=== PATIENT | female | born 1990 | race African-American/Black ===

== ENCOUNTER 2017-07-25 14:17 | Emergency (ER) | payer SELFPAY ==
[~2017-07-25] VITALS: Ht 167.6 cm; Wt 74.1 kg
[~2017-07-25 14:17] MED LIST: ALBUTEROL0.83 MG/ML IH; BACTRIM DS 8001 TAB PO; BIRTH CONTROL PILLS; CEPHALEXIN500 M1 PO; DEPO MEDROL40 MG/ML IJ; MEDROL 4MG DOSPA4 MG PO; NO HOME MEDICATIONS; NORCO 325 MG-51 TAB PO; OMNICEF 300MG300 MG PO; PERCOCET 325 MG1 TA2 PO; PREDNISONE20 MG PO; PROAIR HFA0.09 MG/AC IH; PROVENTIL0.09 MG/A1 IH; VOLTAREN 75 DR75 MG PO; ZOFRAN 4MG T4 MG/TAB PO; ZOFRAN ODT4 MG PO; [UNRECOGNIZED DRUG - OTHER] PO
[2017-07-25 14:20] VITALS: BP 129/84; TEMP 98.6
[2017-07-25 15:28] LABS: ADJUSTED CALCIUM 9.2 mg/dL (8.4-10.2); ALANINE AMINOTRANSFERASE 31 U/L (9-52); ALBUMIN 4.2 gm/dL (3.5-5.0); ALKALINE PHOSPHATASE 56 U/L (50-136); ANION GAP 10 mmol/L (7-16); BILIRUBIN,TOTAL 0.4 mg/dL (0.0-1.0); BLOOD UREA NITROGEN 9 mg/dL (7-17); CALCIUM 9.4 mg/dL (8.4-10.2); CARBON DIOXIDE 24 mmol/L (22-30); CHLORIDE 104 mmol/L (98-107); CREATININE, serum 0.76 mg/dL (0.52-1.25); GLUCOSE 91 mg/dL (74-106); POTASSIUM 3.7 mmol/L (3.4-5.0); SODIUM 138 mmol/L (137-145); TOTAL PROTEIN 7.1 gm/dL (6.4-8.2)
[2017-07-25 15:32] LABS: BASO # 0.1 (0.0-0.2); BASO % 0.6 % (0.0-2.0); EOS # 0.2 (0.0-0.7); EOS % 2.2 % (0-4.0); GRAN # 5.3 (1.4-6.5); GRAN % 52.7 % (42.2-75.2); LYMPH # 3.7 (1.2-3.4); LYMPH % 36.7 % (20.0-51.0); MEAN CELL VOLUME 85 fl (80.0-100.0); MEAN CORPUSCULAR HEMOGLOBIN 28 pg (27.0-31.0); MEAN CORPUSCULAR HGB CONC 33 g/dl (33.0-37.0); MEAN PLATELET VOLUME 9.7 fl (7.4-10.4); MONO # 0.7 (0.1-0.6); MONO % 6.6 % (1.7-9.3); PLATELET COUNT 323 K/mm3 (130-400); RED BLOOD COUNT 4.28 M/mm3 (4.10-5.30); WHITE BLOOD COUNT 10.1 K/mm3 (4.8-10.8)
[2017-07-25 15:41] LABS: HEMATOCRIT 36.3 % (37.0-47.0)
[2017-07-25 15:44] LABS: TROPONIN-I < 0.012 ng/mL (0.000-0.034)
[2017-07-25] MEDS ORDERED: ZITHROMAX Z PA250 MG PO (16:33)
[2017-07-25 16:40] VITALS: PULSE 70
== END 2017-07-25 16:40 | disposition home or self-care (01) ==
LOC: COL.ER 14:17
PROVIDERS: Physician Assistant
DX: R07.1 Chest pain on breathing (principal); Z32.02 Encounter for pregnancy test, result negative
CPT/HCPCS: J1885

== ENCOUNTER 2018-05-06 21:31 | Emergency (ER) | payer SELFPAY ==
[~2018-05-06] VITALS: Ht 167.6 cm; Wt 76.4 kg
[~2018-05-06 21:31] MED LIST changes: +ZITHROMAX Z PA250 MG PO
[2018-05-06 21:39] VITALS: BP 147/87; TEMP 98.2
[2018-05-06 22:30] LABS: BASO % 0.4 % (0.0-2.0); EOS # 0.2 (0.0-0.7); GRAN # 3.6 (1.4-6.5); GRAN % 51.8 % (42.2-75.2); HEMATOCRIT 38.4 % (37.0-47.0); HEMOGLOBIN 12.8 g/dl (12.5-16.0); LYMPH # 2.7 (1.2-3.4); LYMPH % 38.1 % (20.0-51.0); MEAN CELL VOLUME 84 fl (80.0-100.0); MEAN CORPUSCULAR HEMOGLOBIN 28 pg (27.0-31.0); MEAN CORPUSCULAR HGB CONC 33 g/dl (33.0-37.0); MEAN PLATELET VOLUME 9.8 fl (7.4-10.4); MONO # 0.5 (0.1-0.6); MONO % 6.6 % (1.7-9.3); PLATELET COUNT 256 K/mm3 (130-400); RED BLOOD COUNT 4.56 M/mm3 (4.10-5.30); REDCELL DISTRIBUTION WIDTH-CV 14.2 % (11.5-14.5)
[2018-05-06 22:42] LABS: ALBUMIN 4.5 gm/dL (3.5-5.0); BILIRUBIN,TOTAL 0.2 mg/dL (0.0-1.0); C-REACTIVE PROTEIN 0.6 mg/dL (0.0-0.9); CALCIUM 9.7 mg/dL (8.4-10.2); CREATININE, serum 0.73 mg/dL (0.52-1.25); POTASSIUM 3.9 mmol/L (3.4-5.0); TOTAL PROTEIN 8.1 gm/dL (6.4-8.2)
[2018-05-06 22:51] LABS: COLLECTION METHOD CLEAN CATCH
[2018-05-06 22:56] LABS: MUCOUS Present /lpf; PH 5 (5-8); URINE APPEARANCE Clear; URINE BACTERIA None Seen /hpf; URINE BILIRUBIN Negative (NEGATIVE); URINE BLOOD Negative (NEGATIVE); URINE COLOR Yellow; URINE GLUCOSE Negative (NEGATIVE); URINE KETONE Negative (NEGATIVE); URINE LEUKOCYTE ESTERASE Trace (NEGATIVE); URINE NITRATE Negative (NEGATIVE); URINE PROTEIN(semi-quant) Negative (NEGATIVE); URINE UROBILINOGEN Negative (NEGATIVE)
[2018-05-06] MEDS ORDERED: MACROBID 1100 MG/CAP PO (23:00)
[2018-05-06] MEDS ORDERED: ZOFRAN ODT4 MG PO (23:00)
[2018-05-06 23:12] VITALS: PULSE 66
== END 2018-05-06 23:12 | disposition home or self-care (01) ==
LOC: COL.ER 21:31
PROVIDERS: Physician Assistant
DX: G43.909 Migraine, unspecified, not intractable, without status migrainosus (principal); N39.0 Urinary tract infection, site not specified; J45.909 Unspecified asthma, uncomplicated; Z87.42 Personal history of other diseases of the female genital tract
CPT/HCPCS: J1200; J1885; J2765